=== PATIENT | male | born 1930 | race African-American/Black ===

== ENCOUNTER 2017-02-18 14:57 | Inpatient (IN) | payer MEDICARE, MEDICAID ==
[~2017-02-18] VITALS: Ht 190.5 cm; Wt 73.6 kg
[~2017-02-18 14:57] MED LIST: ACET-2853 PO; ALLO100T PO; ASCO500C6 PO; ASPI-1035 PO; CHOL500010 PO; CLON-457 PO; FERR-43 PO; FURO-151 PO; HYDR-523 PO; INSU100I7 SQ; IPRA3AMP IH; LEVVL SQ; METO25TA6 PO; MULT-1146 PO; PROT40 PO; VERA80TA2 PO
[2017-02-18] MEDS ORDERED: SODIUM CHLORIDE 0.9% 1,000 ML IV ONE ×2 (15:16→17:30)
[2017-02-18 15:55] LABS: HEMATOCRIT. 32.7 % (42.0-52.0); HEMOGLOBIN. 10.9 g/dL (14.0-18.0); MEAN CORPUSCULAR HEMOGLOBIN 29.9 pg (28.0-32.0); MEAN CORPUSCULAR HGB CONC 33.2 g/dL (31.0-37.0); MEAN PLATELET VOLUME 9.4 fl (7.4-10.4); PLATELET 294 x1000/uL (130-400); RED BLOOD CELL COUNT 3.64 mill/uL (4.7-6.1); RED CELL DISTRIBUTION WIDTH 16.1 % (11.6-14.6); WHITE BLOOD COUNT 10.7 x1000/uL (4.5-11.0)
[2017-02-18 15:57] LABS: DIFFERENTIAL COMMENT 1
[2017-02-18 15:59] LABS: CHLORIDE 109 mEq/L (98-107)
[2017-02-18 16:00] LABS: INDEX HEMOLYSI 1 (1-3); INDEX ICTERIC 1 (1-4); INDEX LIPEMIC 1 (1-3)
[2017-02-18 16:05] LABS: ALBUMIN 2.8 g/dL (3.4-5.0); ANION GAP 12; CALCIUM 8.7 mg/dL (8.5-10.1); CARBON DIOXIDE 26 mEq/L (21-32); UREA NITROGEN BLOOD 51 mg/dL (7-21)
[2017-02-18 16:07] LABS: AMMONIA 29 uMol/L (<32)
[2017-02-18 16:11] LABS: ALANINE AMINOTRANSFERASE 19 IU/L (13-61); CREATINE KINASE 66 IU/L (39-308); eGFR 41 mL/min (>60)
[2017-02-18 16:12] LABS: LACTIC ACID 2.4 mmol/L (0.4-2.0)
[2017-02-18 17:05] LABS: PLATELET ESTIMATE NORMAL
[2017-02-18 17:06] LABS: ANISOCYTOSIS 1+; GIANT PLATELETS FEW
[2017-02-18] MEDS ORDERED: VANCOMYCIN 1 G PREMIX 200 ML IV SCH (18:15)
[2017-02-18] MEDS ORDERED: PIPERACILLIN/TAZ 3.375G PREMIX 50 ML IV ONE (18:15)
[2017-02-18 18:55] LABS: CLARITY URINE TURBID (CLEAR); COLOR URINE YELLOW (YELLOW); GLUCOSE URINE NEGATIVE (NEGATIVE); KETONES URINE NEGATIVE (NEGATIVE); LEUKOCYTE ESTERASE URINE 3+ (NEGATIVE); NITRITE URINE NEGATIVE (NEGATIVE); OCCULT BLOOD URINE 3+ (NEGATIVE); PROTEIN URINE 2+ (NEGATIVE); SPECIFIC GRAVITY URINE 1.013 (1.005-1.030); UROBILINOGEN URINE 0.2 E.U./dL (0.2-1.0)
[2017-02-18 19:45] LABS: BACTERIA URINE 3+; RBC URINE TNTC /hpf (0-2); SQUAMOUS EPITHELIAL CELL URINE FEW /lpf (RARE/1+); WBC URINE TNTC /hpf (0-2)
[2017-02-18 23:05] VITALS: BP 163/88
[2017-02-18] MEDS ORDERED: POTA10CA42 PO (23:53)
[2017-02-19] VITALS (8 sets, daily range): BP systolic 123–185; BP diastolic 67–97
[2017-02-19] MEDS ORDERED: DEXTROSE 50% WATER 50ML SYRINGE IV PRN (06:00)
[2017-02-19] MEDS ORDERED: LEVOFLOXACIN 500MG PREMIX 100 ML IV NR (06:00)
[2017-02-19] MEDS: BLOOD SUGAR DIAGNOSTIC STRIP TEST SCH ×4 (06:22→21:00)
[2017-02-19] MEDS: INSULIN LISPRO 100 UNITS/ML SUBCUT SCH ×4 (06:23→21:00)
[2017-02-19] MEDS: DEXT 5%/0.45% NACL 1000ML 1,000 ML IV SCH ×2 (06:58→22:49)
[2017-02-19 09:05] LABS: HEMATOCRIT. 31.4 % (42.0-52.0); HEMOGLOBIN. 10.3 g/dL (14.0-18.0); MEAN CORPUSCULAR HEMOGLOBIN 29.1 pg (28.0-32.0); MEAN CORPUSCULAR HGB CONC 32.6 g/dL (31.0-37.0); MEAN CORPUSCULAR VOLUME 89.2 fL (80.0-94.0); MEAN PLATELET VOLUME 9.5 fl (7.4-10.4); PLATELET 251 x1000/uL (130-400); RED BLOOD CELL COUNT 3.53 mill/uL (4.7-6.1); RED CELL DISTRIBUTION WIDTH 15.5 % (11.6-14.6); WHITE BLOOD COUNT 9.4 x1000/uL (4.5-11.0)
[2017-02-19 09:10] LABS: DIFFERENTIAL COMMENT 1
[2017-02-19 09:19] LABS: ALANINE AMINOTRANSFERASE 14 IU/L (13-61); ALBUMIN 2.5 g/dL (3.4-5.0); ANION GAP 10; CALCIUM 8.6 mg/dL (8.5-10.1); CARBON DIOXIDE 26 mEq/L (21-32); CHLORIDE 113 mEq/L (98-107); INDEX HEMOLYSI 1 (1-3); INDEX ICTERIC 1 (1-4); INDEX LIPEMIC 1 (1-3); UREA NITROGEN BLOOD 44 mg/dL (7-21); eGFR 50 mL/min (>60)
[2017-02-19] MEDS: PANTOPRAZOLE SODIUM 40 MG/VIAL IV SCH (09:41)
[2017-02-19] MEDS: ENOXAPARIN 30MG/0.3ML SYR SUBCUT SCH (09:42)
[2017-02-19] MEDS: HYDRALAZINE 20MG/ML VIAL IV PRN (12:36)
[2017-02-19 14:54] LABS: ANISOCYTOSIS 1+; PLATELET ESTIMATE NORMAL
[2017-02-20] VITALS: BP 144/61
[2017-02-20 04:00] VITALS: BP 161/95
[2017-02-20] MEDS: LEVOFLOXACIN 250MG PREMIX 50 ML IV SCH (06:02)
[2017-02-20] MEDS: BLOOD SUGAR DIAGNOSTIC STRIP TEST SCH ×4 (06:03→20:24)
[2017-02-20] MEDS: HYDRALAZINE 20MG/ML VIAL IV PRN (06:03)
[2017-02-20] MEDS: INSULIN LISPRO 100 UNITS/ML SUBCUT SCH ×4 (06:46→20:34)
[2017-02-20 08:34] VITALS: BP 157/94
[2017-02-20] MEDS: DEXT 5%/0.45% NACL 1000ML 1,000 ML IV SCH (09:33)
[2017-02-20] MEDS: ENOXAPARIN 30MG/0.3ML SYR SUBCUT SCH (09:33)
[2017-02-20] MEDS: PANTOPRAZOLE SODIUM 40 MG/VIAL IV SCH (09:33)
[2017-02-20 12:00] VITALS: BP 125/71
[2017-02-20 16:34] VITALS: BP 140/71
[2017-02-20 20:00] VITALS: BP 152/86
[2017-02-20] MEDS: ASCORBIC ACID 250 MG TABLET PO SCH (20:33)
[2017-02-21] VITALS: BP 154/79
[2017-02-21 04:00] VITALS: BP 135/72
[2017-02-21] MEDS: LEVOFLOXACIN 250MG PREMIX 50 ML IV SCH (06:08)
[2017-02-21 06:18] LABS: HEMATOCRIT. 26.6 % (42.0-52.0); MEAN CORPUSCULAR HEMOGLOBIN 29.8 pg (28.0-32.0); MEAN CORPUSCULAR HGB CONC 33.9 g/dL (31.0-37.0); MEAN CORPUSCULAR VOLUME 87.9 fL (80.0-94.0); MEAN PLATELET VOLUME 9.4 fl (7.4-10.4); PLATELET 210 x1000/uL (130-400); RED BLOOD CELL COUNT 3.02 mill/uL (4.7-6.1); RED CELL DISTRIBUTION WIDTH 15.4 % (11.6-14.6); WHITE BLOOD COUNT 8.2 x1000/uL (4.5-11.0)
[2017-02-21] MEDS: BLOOD SUGAR DIAGNOSTIC STRIP TEST SCH ×2 (06:25→11:58)
[2017-02-21] MEDS: INSULIN LISPRO 100 UNITS/ML SUBCUT SCH ×2 (06:28→13:10)
[2017-02-21] MEDS ORDERED: PANTOPRAZOLE 40MG DR TABLET PO SCH (06:45)
[2017-02-21 07:46] LABS: DIFFERENTIAL COMMENT 1
[2017-02-21 07:54] LABS: ALANINE AMINOTRANSFERASE 13 IU/L (13-61); ALBUMIN 2.3 g/dL (3.4-5.0); ANION GAP 10; CALCIUM 8.1 mg/dL (8.5-10.1); CARBON DIOXIDE 24 mEq/L (21-32); CHLORIDE 112 mEq/L (98-107); INDEX HEMOLYSI 1 (1-3); INDEX ICTERIC 1 (1-4); INDEX LIPEMIC 1 (1-3); UREA NITROGEN BLOOD 37 mg/dL (7-21); eGFR 41 mL/min (>60)
[2017-02-21 08:00] VITALS: BP 141/76
[2017-02-21] MEDS: ASCORBIC ACID 250 MG TABLET PO SCH (08:49)
[2017-02-21] MEDS: ENOXAPARIN 30MG/0.3ML SYR SUBCUT SCH (08:50)
[2017-02-21] MEDS ORDERED: FOLIC ACID/VITAMIN B COMP W-C TABLET PO SCH (09:00)
[2017-02-21] MEDS ORDERED: ZINC SULFATE 220 MG ( 50 ) CAPSULE PO SCH (09:00)
[2017-02-21 10:49] VITALS: BP 141/76
[2017-02-21 12:00] VITALS: BP_SYST 103; BP_SYST 148; BP_DIAS 66; BP_DIAS 81
[2017-02-21 13:20] LABS: PLATELET ESTIMATE NORMAL
== END 2017-02-21 15:15 | DRG 871 ==
LOC: ER 15:17 → 5WST 18:16
PROVIDERS: ADMIT Hospitalist; ATTEND Hospitalist
DX: A41.9 Sepsis, unspecified organism (principal); G93.40 Encephalopathy, unspecified; E43 Unspecified severe protein-calorie malnutrition; N39.0 Urinary tract infection, site not specified; N17.9 Acute kidney failure, unspecified; E11.9 Type 2 diabetes mellitus without complications; F03.90 Unspecified dementia, unspecified severity, without behavioral disturbance, psychotic disturbance, mood disturbance, and anxiety; I11.0 Hypertensive heart disease with heart failure; E86.0 Dehydration; I50.9 Heart failure, unspecified; K21.9 Gastro-esophageal reflux disease without esophagitis; D64.9 Anemia, unspecified; Z68.20 Body mass index [BMI] 20.0-20.9, adult; Z86.73 Personal history of transient ischemic attack (TIA), and cerebral infarction without residual deficits; Z79.82 Long term (current) use of aspirin; Z79.4 Long term (current) use of insulin; Z79.899 Other long term (current) drug therapy; E88.09 Other disorders of plasma-protein metabolism, not elsewhere classified
CPT/HCPCS: 36415; 51702; 70450; 71010; 80053; 81001; 82140; 82550; 82962; 83605; 84443; 85025; 87040; 87086; 92610; 93005; 93970; 96361; 96365; 96366; 99285; C9113; J0360; J1650; J1815; J1956; J2543; J3370; J3490; J7030; J7050; A4315

== ENCOUNTER 2017-05-30 20:55 | Emergency (ER) | payer MEDICARE, MEDICAID ==
[~2017-05-30] VITALS: Ht 177.8 cm; Wt 81.0 kg
[~2017-05-30 20:55] MED LIST changes: -ASPI-1035 PO; +ASPI-1158 PO; +POTA10CA42 PO
[2017-05-31] MEDS ORDERED: OCTREOTIDE ACETATE 50 MCG/ML 1ML IV STA (00:11)
[2017-05-31] MEDS ORDERED: SODIUM CHLORIDE 0.9% 500 ML IV ONE (00:11)
[2017-05-31] MEDS ORDERED: PANTOPRAZOLE SODIUM 40 MG/VIAL IV STA (00:11)
[2017-05-31 00:38] LABS: BASOPHILS % 0.6 % (0.0-2.0); EOSINOPHILS % 12.5 % (0.0-5.0); HEMATOCRIT. 24.7 % (42.0-52.0); HEMOGLOBIN. 8.1 g/dL (14.0-18.0); LYMPHOCYTES % 21.9 % (20.0-50.0); MEAN CORPUSCULAR HEMOGLOBIN 25.8 pg (28.0-32.0); MEAN CORPUSCULAR VOLUME 78.8 fL (80.0-94.0); MEAN PLATELET VOLUME 9.3 fl (7.4-10.4); MONOCYTES % 12.2 % (2.0-8.0); NEUTROPHILS % 52.8 % (40.0-76.0); PLATELET 252 x1000/uL (130-400); RED BLOOD CELL COUNT 3.13 mill/uL (4.7-6.1); RED CELL DISTRIBUTION WIDTH 14.9 % (11.6-14.6)
[2017-05-31 00:41] LABS: CHLORIDE 113 mEq/L (98-107)
[2017-05-31 00:43] LABS: INR 1.1; PROTHROMBIN TIME 11.6 sec (9.4-11.6)
[2017-05-31 00:50] LABS: CARBON DIOXIDE 24 mEq/L (21-32)
[2017-05-31] MEDS ORDERED: SODIUM CHLORIDE 0.9% 1,000 ML IV ONE (01:29)
[2017-05-31] MEDS ORDERED: SODIUM CHLORIDE 0.9% 1,000 ML IV SCH (03:00)
[2017-05-31 06:30] VITALS: BP 197/96
== END 2017-05-31 06:49 | disposition home or self-care (01) ==
LOC: ER 21:44
DX: D50.9 Iron deficiency anemia, unspecified (principal); J32.0 Chronic maxillary sinusitis; E86.0 Dehydration; I13.0 Hypertensive heart and chronic kidney disease with heart failure and stage 1 through stage 4 chronic kidney disease, or unspecified chronic kidney disease; E11.22 Type 2 diabetes mellitus with diabetic chronic kidney disease; N18.9 Chronic kidney disease, unspecified; I50.9 Heart failure, unspecified; K21.9 Gastro-esophageal reflux disease without esophagitis; F03.90 Unspecified dementia, unspecified severity, without behavioral disturbance, psychotic disturbance, mood disturbance, and anxiety; Z79.4 Long term (current) use of insulin; Z79.82 Long term (current) use of aspirin
CPT/HCPCS: 36415; 70450; 80053; 83605; 83690; 85025; 85044; 85610; 86850; 86870; 86900; 86901; 96361; 96374; 96375; 99285; C9113; J2354; J7030; J7040

== ENCOUNTER 2017-07-09 15:39 | Inpatient (IN) | payer MEDICARE, MEDICAID ==
[~2017-07-09] VITALS: Ht 190.5 cm; Wt 68.0 kg
[~2017-07-09 15:39] MED LIST changes: -IPRA3AMP IH; +IPRA3AMP9 IH
[2017-07-09 17:04] LABS: HEMOGLOBIN. 8.1 g/dL (14.0-18.0); MEAN CORPUSCULAR HEMOGLOBIN 24.1 pg (28.0-32.0); MEAN CORPUSCULAR VOLUME 74.8 fL (80.0-94.0); MEAN PLATELET VOLUME 8.7 fl (7.4-10.4); PLATELET 266 x1000/uL (130-400); RED BLOOD CELL COUNT 3.34 mill/uL (4.7-6.1); RED CELL DISTRIBUTION WIDTH 17.3 % (11.6-14.6)
[2017-07-09 17:08] LABS: CHLORIDE 115 mEq/L (98-107)
[2017-07-09 17:09] LABS: INR 1.1; PARTIAL THROMBOPLASTIN TIME 27.2 sec (23.4-31.0); PROTHROMBIN TIME 11.8 sec (9.4-11.6)
[2017-07-09 17:18] LABS: CARBON DIOXIDE 29 mEq/L (21-32)
[2017-07-09] MEDS ORDERED: FUROSEMIDE 40MG/4ML VIAL IVP ONE (17:30)
[2017-07-09 17:35] LABS: PLATELET ESTIMATE NORMAL
[2017-07-09 17:46] LABS: CLARITY URINE CLOUDY (CLEAR); COLOR URINE YELLOW (YELLOW); GLUCOSE URINE NEGATIVE (NEGATIVE); KETONES URINE NEGATIVE (NEGATIVE); LEUKOCYTE ESTERASE URINE 2+ (NEGATIVE); NITRITE URINE NEGATIVE (NEGATIVE); OCCULT BLOOD URINE 2+ (NEGATIVE); PROTEIN URINE 4+ (NEGATIVE); SPECIFIC GRAVITY URINE 1.023 (1.005-1.030); UROBILINOGEN URINE 0.2 E.U./dL (0.2-1.0)
[2017-07-09] MEDS ORDERED: LEVOFLOXACIN 500MG PREMIX 100 ML IV ONE (18:15)
[2017-07-09 21:45] VITALS: BP 190/93
[2017-07-10] VITALS: BP 200/88
[2017-07-10] MEDS ORDERED: ACETAMINOPHEN 325MG TABLET PO PRN (00:15)
[2017-07-10] MEDS ORDERED: IPRATROPIUM/ALBUTEROL 0.5-3(2.5)MG/3ML NEB INH PRN (00:15)
[2017-07-10] MEDS ORDERED: MAGNESIUM/ALUMINUM HYDROXIDE/SIMETHICONE 30ML UDC PO PRN (00:15)
[2017-07-10] MEDS ORDERED: ONDANSETRON HCL 4MG/2ML VIAL IV PRN (00:15)
[2017-07-10] MEDS: DIPHENHYDRAMINE 50MG/ML VIAL IV PRN ×3 (01:36→21:04)
[2017-07-10] MEDS: CLONIDINE 0.1MG TABLET PO PRN (01:36)
[2017-07-10] MEDS ORDERED: DEXT 5%/0.2% NACL KCL 20MEQ/L 1,000 ML IV SCH (03:00)
[2017-07-10] MEDS: POTASSIUM CHLORIDE INJ 20 MEQ in DEXT 5%/0.2% NACL 1,000 ML IV SCH ×2 (03:11→13:47)
[2017-07-10 03:32] VITALS: BP 120/84
[2017-07-10 08:00] VITALS: BP 182/100
[2017-07-10] MEDS: HYDRALAZINE 20MG/ML VIAL IV PRN (08:53)
[2017-07-10 12:00] VITALS: BP 152/65
[2017-07-10] MEDS ORDERED: IPRATROPIUM/ALBUTEROL 0.5-3(2.5)MG/3ML NEB HHN PRN (12:15)
[2017-07-10] MEDS ORDERED: VANCOMYCIN 1500MG in DEXTROSE 5% WATER 250ML IV NR (15:00)
[2017-07-10 15:58] VITALS: BP 158/85
[2017-07-10] MEDS ORDERED: LEVOFLOXACIN 500MG PREMIX 100 ML IV SCH (18:00)
[2017-07-10 20:00] VITALS: BP 150/87
[2017-07-11] VITALS: BP 202/93
[2017-07-11] MEDS: CLONIDINE 0.1MG TABLET PO PRN (00:38)
[2017-07-11 04:00] VITALS: BP 155/85
[2017-07-11] MEDS: HYDRALAZINE 20MG/ML VIAL IV PRN (05:50)
[2017-07-11 06:02] LABS: HEMATOCRIT. 23.2 % (42.0-52.0); HEMOGLOBIN. 7.6 g/dL (14.0-18.0); MEAN CORPUSCULAR HEMOGLOBIN 24.4 pg (28.0-32.0); MEAN CORPUSCULAR VOLUME 74.5 fL (80.0-94.0); MEAN PLATELET VOLUME 8.7 fl (7.4-10.4); PLATELET 220 x1000/uL (130-400); RED BLOOD CELL COUNT 3.12 mill/uL (4.7-6.1)
[2017-07-11 07:37] LABS: CARBON DIOXIDE 26 mEq/L (21-32); CHLORIDE 109 mEq/L (98-107)
[2017-07-11 08:00] VITALS: BP 114/60
[2017-07-11] MEDS: POTASSIUM CHLORIDE INJ 20 MEQ in DEXT 5%/0.2% NACL 1,000 ML IV SCH (09:08)
[2017-07-11 12:00] VITALS: BP 132/71
[2017-07-11 13:42] LABS: T4 FREE 1.19 ng/dL (0.76-1.46)
[2017-07-11] MEDS: LINEZOLID 600 MG PREMIX 300 ML IV SCH (14:32)
[2017-07-11] MEDS ORDERED: VANCOMYCIN 1 G PREMIX 200 ML IV SCH (15:00)
[2017-07-11 16:51] VITALS: BP 147/65
[2017-07-11 17:25] LABS: PLATELET ESTIMATE NORMAL
[2017-07-11 20:00] VITALS: BP 167/81
[2017-07-12] VITALS (7 sets, daily range): BP systolic 136–186; BP diastolic 65–85
[2017-07-12] MEDS: LINEZOLID 600 MG PREMIX 300 ML IV SCH ×3 (00:05→21:07)
[2017-07-12 06:29] LABS: BASOPHILS % 0.3 % (0.0-2.0); EOSINOPHILS % 14.6 % (0.0-5.0); HEMATOCRIT. 23.5 % (42.0-52.0); HEMOGLOBIN. 7.8 g/dL (14.0-18.0); LYMPHOCYTES % 26.1 % (20.0-50.0); MEAN CORPUSCULAR HEMOGLOBIN 24.6 pg (28.0-32.0); MEAN CORPUSCULAR VOLUME 74.3 fL (80.0-94.0); MEAN PLATELET VOLUME 8.9 fl (7.4-10.4); MONOCYTES % 11.6 % (2.0-8.0); NEUTROPHILS % 47.4 % (40.0-76.0); PLATELET 221 x1000/uL (130-400); RED BLOOD CELL COUNT 3.16 mill/uL (4.7-6.1); RED CELL DISTRIBUTION WIDTH 17.2 % (11.6-14.6)
[2017-07-12] MEDS: CLONIDINE 0.1MG TABLET PO PRN (08:48)
[2017-07-13] VITALS (12 sets, daily range): BP systolic 130–176; BP diastolic 70–92
[2017-07-13] MEDS: LINEZOLID 600 MG PREMIX 300 ML IV SCH (08:24)
[2017-07-13 11:36] LABS: BASOPHILS % 0.3 % (0.0-2.0); EOSINOPHILS % 8.8 % (0.0-5.0); HEMATOCRIT. 27.6 % (42.0-52.0); HEMOGLOBIN. 9.1 g/dL (14.0-18.0); LYMPHOCYTES % 21.5 % (20.0-50.0); MEAN CORPUSCULAR VOLUME 75.8 fL (80.0-94.0); MEAN PLATELET VOLUME 9.2 fl (7.4-10.4); MONOCYTES % 12.5 % (2.0-8.0); NEUTROPHILS % 56.9 % (40.0-76.0); PLATELET 234 x1000/uL (130-400); RED BLOOD CELL COUNT 3.64 mill/uL (4.7-6.1)
[2017-07-13 11:52] LABS: CARBON DIOXIDE 25 mEq/L (21-32); CHLORIDE 105 mEq/L (98-107)
[2017-07-13] MEDS: CLONIDINE 0.1MG TABLET PO PRN (12:23)
[2017-07-13] MEDS: HYDRALAZINE 20MG/ML VIAL IV PRN (16:38)
[2017-07-13] MEDS ORDERED: NITROFURANTOIN 100MG M/M CAPSULE PO SCH (21:00)
== END 2017-07-13 23:05 | DRG 871 ==
LOC: ER 15:54 → 7WST 18:32 → EDBEDREQ 18:34 → ENRESERV 20:57 → CANRESERV 20:57 → ENRESERV 20:58
PROVIDERS: ADMIT Hospitalist; ATTEND Hospitalist
PROC: 30233N1 Transfusion of Nonautologous Red Blood Cells into Peripheral Vein, Percutaneous Approach (ICD-10-PCS; principal; 2017-07-09)
DX: A41.9 Sepsis, unspecified organism (principal); J18.9 Pneumonia, unspecified organism; E43 Unspecified severe protein-calorie malnutrition; N17.9 Acute kidney failure, unspecified; I11.0 Hypertensive heart disease with heart failure; E87.0 Hyperosmolality and hypernatremia; I50.9 Heart failure, unspecified; E11.9 Type 2 diabetes mellitus without complications; D63.8 Anemia in other chronic diseases classified elsewhere; N39.0 Urinary tract infection, site not specified; Z68.1 Body mass index [BMI] 19.9 or less, adult; B95.5 Unspecified streptococcus as the cause of diseases classified elsewhere; G30.9 Alzheimer's disease, unspecified; F02.80 Dementia in other diseases classified elsewhere, unspecified severity, without behavioral disturbance, psychotic disturbance, mood disturbance, and anxiety; E86.0 Dehydration; Z99.3 Dependence on wheelchair; I48.91 Unspecified atrial fibrillation; K21.9 Gastro-esophageal reflux disease without esophagitis; Z79.899 Other long term (current) drug therapy; Z79.82 Long term (current) use of aspirin; Y95 Nosocomial condition
CPT/HCPCS: 36415; 51702; 70450; 71010; 80048; 80053; 81001; 83605; 83690; 83880; 84439; 84443; 84484; 85025; 85610; 85730; 86850; 86870; 86900; 86920; 87040; 87077; 87086; 87186; 93005; 93306; 93970; 96365; 96366; 96375; 99291; J0360; J1200; J1940; J1956; J2020; J3370; J3480; J7040; J7050; J7060; P9016; A4315

== ENCOUNTER 2017-07-30 14:54 | Emergency (ER) | payer MEDICARE, MEDICAID ==
[~2017-07-30] VITALS: Ht 175.3 cm; Wt 69.0 kg
[2017-07-30 16:49] LABS: HEMATOCRIT. 24.7 % (42.0-52.0); HEMOGLOBIN. 8.1 g/dL (14.0-18.0); MEAN CORPUSCULAR HEMOGLOBIN 25.7 pg (28.0-32.0); MEAN CORPUSCULAR VOLUME 77.8 fL (80.0-94.0); MEAN PLATELET VOLUME 8.7 fl (7.4-10.4); PLATELET 358 x1000/uL (130-400); RED BLOOD CELL COUNT 3.18 mill/uL (4.7-6.1); RED CELL DISTRIBUTION WIDTH 19.1 % (11.6-14.6)
[2017-07-30 16:54] LABS: CHLORIDE 113 mEq/L (98-107)
[2017-07-30 16:55] LABS: INR 1.1; PROTHROMBIN TIME 11.5 sec (9.4-11.6)
[2017-07-30 17:02] LABS: CARBON DIOXIDE 25 mEq/L (21-32)
[2017-07-30 17:04] LABS: TROPONIN I 0.06 ng/mL (0.00-0.04)
[2017-07-30 17:09] LABS: PLATELET ESTIMATE NORMAL
[2017-07-30 22:14] VITALS: BP 149/88
== END 2017-07-30 22:21 ==
LOC: ER 15:00 → CANBEDREQ 22:22
DX: D64.9 Anemia, unspecified (principal); N28.9 Disorder of kidney and ureter, unspecified; Z79.82 Long term (current) use of aspirin; E11.9 Type 2 diabetes mellitus without complications; Z79.4 Long term (current) use of insulin; F17.200 Nicotine dependence, unspecified, uncomplicated
CPT/HCPCS: 36415; 71010; 80053; 83690; 83880; 84484; 85025; 85610; 86850; 86870; 86900; 93005; 99285